=== PATIENT | male | born 1945 | race Two or more races ===

== ENCOUNTER 2022-08-27 18:50 | Emergency (ER) | payer MEDICARE, OTHER ==
[~2022-08-27] VITALS: Ht 167.6 cm; Wt 76.7 kg
[~2022-08-27 18:50] MED LIST: IBUP200C3 PO
[2022-08-27 19:20] VITALS: BP 118/74
== END 2022-08-27 21:34 | disposition home or self-care (01) ==
LOC: ER 18:50
DX: R51.9 Headache, unspecified (principal); I63.9 Cerebral infarction, unspecified
CPT/HCPCS: 70450